=== PATIENT | male | born 1975 | race Caucasian/White ===

== ENCOUNTER → 2016-08-10 | Day surgery (SDC) | payer OTHER ==
[2016-08-10] VITALS (8 sets, daily range): BP systolic 91–108; BP diastolic 57–88; PULSE 57–70; RESP 15–18; O2SAT 94–97
[~2016-08-10] VITALS: Ht 172.7 cm; Wt 87.5 kg
[~2016-08-10] MED LIST: 0.9% Sodium Chloride 1,000 ML IV ONE; 0.9% Sodium Chloride 1,000 ML ONE; 0.9% Sodium Chloride 50 ML ONE; Heparin 1,000 Unit/mL 10 mL Inj ONE; Heparin 1,000 Units/500 mL NS Premix IV ONE; KTC2C15 TP; fentaNYL-PF 50 mCg/mL 2 mL Inj ONE
[2016-08-10 07:44] LABS: BASOPHILS % (AUTO) 0.5 % (0-3); EOSINOPHILS % (AUTO) 1.8 % (0-5); MONOCYTES % (AUTO) 10.6 % (4-12); Mean Corpuscular Hemoglobin 33.5 pg (27.0-35.0); Mean Corpuscular Volume 92.2 fL (81-100); NEUTROPHILS % (AUTO) 51.2 % (40-74); Platelet Count 185 bil/L (150-400)
[2016-08-10 07:48] LABS: INR 1.01 ratio
--- NOTE | 2016-08-10 13:19 | NUR ---
Discharge Pt discharged to home with family, had stable recovery post heart cath in [place] on [place], groin site soft non tender, no signs of bleeding. Pt stated verbal understanding of discharge instructions regarding signsof worsening condition and follow up appiontments. Pt left with personal belongings, discharge paperwork, IV dc'd intact x2 at approximately 1300.
--- NOTE | 2016-08-10 13:27 | CS94 ---
[address] [address] DIAGNOSTIC CARDIAC CATHETERIZATION PATIENT: MASSIEL MISTRY : 1975 MR#: [id number] ADMIT: 08/10/2016 JOB ID: [id number] SERVICE DATE: 08/10/2016 PATIENT PROFILE: The patient is a 41 years old male with history of atrial septal defect with a diameter of 1.4 cm. PROCEDURE: Right heart catheterization. METHOD: Conscious sedation was achieved with IV Versed and IV fentanyl. Vascular access was obtained from the right groin under 1% lidocaine local anesthesia using a 7-Slovenian sheath. A 7-Slovenian Plato-Jewell catheter was used for the right heart pressures. Cardiac output was determined by both VI method and thermodilution technique. Oxygen saturation run was performed. Following sheath removal, hemostasis was achieved by manual compression. The patient tolerated the procedure well. He was transferred to [facility] in good condition. RESULTS: 1. Right superior vena cava saturation is 61%. 2. Left superior vena cava saturation is 66%. 3. Inferior vena cava saturation is 74%. 4. High right atrium saturation is 77%, mid right atrial saturation is 75%, low right atrial saturation is 72%. 5. Right ventricular saturation is 79%. Pulmonary artery saturation is 82%. 6. Right atrial pressure is 4 mmHg. Right ventricular pressure is 27/3 mmHg. 7. Pulmonary artery pressure is 27/10 mmHg. 8. Mean pulmonary capillary wedge pressure is 13 mmHg. 9. Cardiac output by the Vi Method is 6.36 L/minute with an index of 3.2 L/minute/m2. 10. Cardiac output by the thermodilution technique is 6.47 L/minute with an index of 3.34 L/minute/m2. 11. Qp/Qs is 98 - 66.5 / 98 - 82 = 1.96 12. Arterial oxygen saturation is 98%. CONCLUSION: 1. Normal pulmonary artery pressure. 2. Cardiac index is 3.3 L/minute/m2. 3. Atrial septal defect with a Qp/Qs of 1.96. 4. Persistent left superior vena cava. MTDD
== END | disposition home or self-care (01) ==
LOC: SOUO 00:08
PROVIDERS: ATTEND Internal Medicine Interventional Cardiology
DX: Q21.1 Atrial septal defect (principal); Q26.1 Persistent left superior vena cava; E78.2 Mixed hyperlipidemia; Z87.891 Personal history of nicotine dependence; I45.10 Unspecified right bundle-branch block; G47.33 Obstructive sleep apnea (adult) (pediatric); E66.3 Overweight; Z68.29 Body mass index [BMI] 29.0-29.9, adult
CPT/HCPCS: 36415; 80048; 85025; 85610; 93005; 93451; 99152; 99153; C1769; J1644; J2060; J2250; J3010; J7030; Q9967